=== PATIENT | female | born 1955 | race Caucasian/White ===

== ENCOUNTER 2017-11-30 18:31 | Emergency (ER) | payer OTHER ==
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
== END 2017-12-01 02:05 | disposition home or self-care (01) ==
LOC: JP.ED 18:31
DX: F32.9 Major depressive disorder, single episode, unspecified (principal); F17.210 Nicotine dependence, cigarettes, uncomplicated
CPT/HCPCS: 99284